=== PATIENT | female | born 1950 | race Caucasian/White ===

== ENCOUNTER 2025-08-03 21:32 | Emergency (ER) | payer BC, MEDICAID ==
[~2025-08-03] VITALS: Ht 149.9 cm; Wt 69.0 kg
[~2025-08-03 21:32] MED LIST: ASPI-1497 PO; LIP40 PO; LOSA50TA41 PO
[2025-08-03 21:56] VITALS: O2SAT 99
[2025-08-03 22:45] LABS: BASOPHILS % 0.4 % (0.0-2.0); EOSINOPHILS % 1.7 % (0.0-5.0); HEMATOCRIT. 45.9 % (36.0-48.0); HEMOGLOBIN. 14.6 g/dL (12.0-16.0); LYMPHOCYTES % 11.4 % (20.0-50.0); MEAN PLATELET VOLUME 9.0 fl (7.4-10.4); MONOCYTES % 3.6 % (2.0-8.0); NEUTROPHILS % 82.9 % (40.0-76.0); PLATELET 215 x1000/uL (130-400); RED BLOOD CELL COUNT 5.25 mill/uL (4.2-5.4); RED CELL DISTRIBUTION WIDTH 16.0 % (11.6-14.6)
[2025-08-03 23:03] LABS: CREATININE 1.1 mg/dL (0.6-1.0); UREA NITROGEN BLOOD 13 mg/dL (9-23)
[2025-08-03 23:04] LABS: PROTEIN TOTAL 7.7 g/dL (6.0-8.3)
[2025-08-03 23:05] LABS: ASPARTATE AMINOTRANSFERASE 19 IU/L (<34); BILIRUBIN DIRECT 0.1 mg/dL (<=3.0); BILIRUBIN TOTAL 0.5 mg/dL (0.1-1.0)
[2025-08-03] MEDS: MECLIZINE 25MG TABLET PO ONE (23:47)
[2025-08-03] MEDS: IBUPROFEN 600MG TABLET PO ONE (23:47)
[2025-08-04] MEDS ORDERED: MECL-299 MT (02:19)
[2025-08-04 02:47] VITALS: BP 158/62; PULSE 70; RESP 18; TEMP 36.9; O2SAT 99
== END 2025-08-04 02:48 | disposition home or self-care (01) ==
LOC: ER 21:32
DX: R42 Dizziness and giddiness (principal); I10 Essential (primary) hypertension; Z79.899 Other long term (current) drug therapy; Z88.0 Allergy status to penicillin
CPT/HCPCS: 99284; 80076; 80048; 83690; 85025; 36415; 93005; 70450; J8597